=== PATIENT | male | born 1960 | race African-American/Black ===

== ENCOUNTER 2020-06-19 14:35 | Emergency (ER) | payer MEDICAID ==
[~2020-06-19] VITALS: Ht 170.2 cm; Wt 64.0 kg
[~2020-06-19 14:35] MED LIST: ABIL5 PO
[2020-06-19] MEDS ORDERED: SODIUM CHLORIDE 0.9% 1,000 ML IV ONE (15:29)
[2020-06-19 15:56] LABS: BASOPHILS % 0.8 % (0.0-2.0); EOSINOPHILS % 5.3 % (0.0-5.0); HEMOGLOBIN. 16.4 g/dL (14.0-18.0); LYMPHOCYTES % 44.3 % (20.0-50.0); MEAN CORPUSCULAR HEMOGLOBIN 29.8 pg (28.0-32.0); MEAN CORPUSCULAR VOLUME 89.3 fL (80.0-94.0); MEAN PLATELET VOLUME 7.4 fl (7.4-10.4); NEUTROPHILS % 40.6 % (40.0-76.0); PLATELET 280 x1000/uL (130-400); RED BLOOD CELL COUNT 5.48 mill/uL (4.7-6.1)
[2020-06-19 15:59] LABS: CHLORIDE 108 mEq/L (98-107)
[2020-06-19 16:03] LABS: ETHANOL BLOOD 14 mg/dL
[2020-06-19 18:37] VITALS: BP 125/75
== END 2020-06-19 18:41 | disposition home or self-care (01) ==
LOC: ER 14:35
DX: R55 Syncope and collapse (principal); R51 Headache; F12.10 Cannabis abuse, uncomplicated; Z98.890 Other specified postprocedural states
CPT/HCPCS: 36415; 70450; 71045; 80053; 80320; 84484; 85025; 93005; 96360; 99285; J7030; G0480